=== PATIENT | male | born 1955 | race Caucasian/White ===

== ENCOUNTER 2018-09-26 22:22 | Emergency (ER) | payer MEDICAID, OTHER ==
[~2018-09-26] VITALS: Ht 172.7 cm; Wt 71.0 kg
[2018-09-27] MEDS ORDERED: HYDROCODONE/ACETAMINOPHEN 5/325MG TABLET PO ONE (03:45)
[2018-09-27 09:06] VITALS: BP 132/71
== END 2018-09-27 09:07 | disposition home or self-care (01) ==
LOC: ER 23:00
DX: S00.83XA Contusion of other part of head, initial encounter (principal); R68.84 Jaw pain; Y08.89XA Assault by other specified means, initial encounter; Y93.9 Activity, unspecified; Y92.9 Unspecified place or not applicable
CPT/HCPCS: 70486; 74176; 99284

== ENCOUNTER 2018-10-02 11:26 | Emergency (ER) | payer MEDICAID, OTHER ==
[~2018-10-02] VITALS: Ht 177.8 cm; Wt 90.0 kg
[2018-10-02] MEDS ORDERED: QUET25TA PO (11:29)
[2018-10-02] MEDS ORDERED: ACETAMINOPHEN 325MG TABLET PO STA (13:12)
[2018-10-02] MEDS ORDERED: SODIUM CHLORIDE 0.9% 1,000 ML IV ONE (13:12)
[2018-10-02 14:46] LABS: BASOPHILS % 0.4 % (0.0-2.0); CHLORIDE 107 mEq/L (98-107); EOSINOPHILS % 0.4 % (0.0-5.0); HEMOGLOBIN. 14.4 g/dL (14.0-18.0); LYMPHOCYTES % 13.9 % (20.0-50.0); MEAN CORPUSCULAR HEMOGLOBIN 36.3 pg (28.0-32.0); MEAN CORPUSCULAR VOLUME 105.9 fL (80.0-94.0); MONOCYTES % 5.8 % (2.0-8.0); NEUTROPHILS % 79.5 % (40.0-76.0); PLATELET 213 x1000/uL (130-400); RED BLOOD CELL COUNT 3.96 mill/uL (4.7-6.1); RED CELL DISTRIBUTION WIDTH 15.6 % (11.6-14.6)
[2018-10-02 15:00] LABS: INR 0.9; PROTHROMBIN TIME 9.4 sec (9.1-11.1)
[2018-10-02] MEDS ORDERED: DEXTROSE 50% WATER 50ML SYRINGE IV ONE (15:00)
[2018-10-02] MEDS ORDERED: ASPIRIN 325MG EC TABLET PO ONE (16:00)
[2018-10-02] MEDS ORDERED: MORPHINE SULFATE 2 MG/ML CPJ (NOT FOR IM USE) IV ONE (16:30)
[2018-10-02] MEDS ORDERED: MORPHINE SULFATE 4 MG/ML CPJ (NOT FOR IM USE) IV ONE (17:15)
[2018-10-02] MEDS ORDERED: CLONIDINE 0.1MG TABLET PO PRN (19:30)
[2018-10-02] MEDS ORDERED: ONDANSETRON HCL 4MG/2ML INJ IV PRN (19:30)
[2018-10-02] MEDS ORDERED: MORPHINE SULFATE 2 MG/ML CPJ (NOT FOR IM USE) IV PRN (19:30)
[2018-10-02] MEDS ORDERED: LORAZEPAM 2MG/ML CPJ IV PRN (19:30)
[2018-10-02] MEDS ORDERED: FOLIC ACID 1 MG, THIAMINE HCL 100 MG, MVI, ADULT NO.1 10 ML in DEXTROSE 5% WATER 1,000 ML IV ONE ×4 (19:30)
[2018-10-02] MEDS ORDERED: ACETAMINOPHEN 325MG TABLET PO PRN (19:30)
[2018-10-02] MEDS ORDERED: IPRATROPIUM/ALBUTEROL 0.5-3(2.5)MG/3ML NEB HHN PRN (19:30)
[2018-10-02] MEDS ORDERED: HYDROCODONE/ACETAMINOPHEN 5/325MG TABLET PO PRN (19:30)
[2018-10-02 20:59] VITALS: BP 130/76
[2018-10-03] MEDS ORDERED: ASPIRIN 81MG TABLET PO SCH (09:00)
== END 2018-10-02 21:17 | disposition short-term general hospital (02) ==
LOC: ER 11:26 → ENRESERV 17:24 → CANRESERV 17:24 → CANBEDREQ 17:54 → ER 21:17
DX: I24.9 Acute ischemic heart disease, unspecified (principal); E86.0 Dehydration; F10.10 Alcohol abuse, uncomplicated; E16.2 Hypoglycemia, unspecified; F41.9 Anxiety disorder, unspecified; J44.9 Chronic obstructive pulmonary disease, unspecified; I25.10 Atherosclerotic heart disease of native coronary artery without angina pectoris; F32.9 Major depressive disorder, single episode, unspecified; E03.9 Hypothyroidism, unspecified; I25.2 Old myocardial infarction; F17.200 Nicotine dependence, unspecified, uncomplicated; Z98.890 Other specified postprocedural states
CPT/HCPCS: 36415; 70450; 71045; 80053; 80061; 82962; 83690; 84443; 84484; 85025; 85610; 93005; 96361; 96374; 99291; 99406; J2270; J7030; Z7610; 80305